=== PATIENT | male | born 1945 | race Caucasian/White ===

== ENCOUNTER 2016-08-20 11:22 | Inpatient (IN) | payer OTHER, MEDICARE ==
[2016-08-20] MEDS ORDERED: NS 1,000 ML IV ONE (12:08)
[2016-08-20] MEDS ORDERED: diphenhydrAMINE 25 MG CAP PO ONE (12:08)
[2016-08-20] MEDS ORDERED: DIAZEPAM 5 MG TAB PO ONE (12:08)
[2016-08-20] MEDS ORDERED: BACITRACIN IRRIGATION/NS 50,000 UNITS/1,000 ML BTL IRR ONE (12:08)
[2016-08-20] MEDS ORDERED: VANCOMYCIN 1.5 GM in D5W 250 ML IV ONE (12:30)
[2016-08-20] MEDS ORDERED: IOPAMIDOL (ISOVUE-300) 200 ML BTL IV ONE (13:02)
[2016-08-20] MEDS ORDERED: MIDAZOLAM 2 MG/2 ML VIAL ONE ×2 (13:02→14:37)
[2016-08-20] MEDS ORDERED: LIDOCAINE 1% 30 ML SDV ONE (13:02)
[2016-08-20] MEDS ORDERED: BUPIVACAINE 0.5% 30 ML SDV ONE (13:02)
[2016-08-20] MEDS ORDERED: fentaNYL 100 MCG/2 ML INJ ONE ×2 (13:02→14:37)
[2016-08-20] MEDS ORDERED: LIDO/EPI 1% **for epidural** 30 ML SDV ONE (13:02)
[2016-08-20] MEDS ORDERED: IOPAMIDOL (ISOVUE-300) 50 ML VIAL IV ONE (13:04)
--- NOTE | 2016-08-20 14:19 | SUROPNOTE ---
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 The patient converted to normal sinus rhythm with IV Amiodarone (administered by EMS). He demonstrated mild indeterminate troponin elevation. Left heart catheterization at [facility] demonstrated coronary disease relatively unchanged from previous (total occlusion of all three yocha dehe coronaries, patient left internal mammary graft to LAD, patent saphenous vein graft to the first obtuse marginal branch, patent circumflex stents, total occlusion of the first diagonal branch, moderate disease in the second diagonal branch, and total occlusion of the right coronary bypass graft with left to right collaterals present), question of some progressive disease in the second diagonal branch. The patient was transferred to [facility] for placement of an implantable defibrillator, secondary to sustained monomorphic ventricular tachycardia; Class I indication for AICD implant. Dual chamber device will be implanted secondary to history of AV block, symptomatic bradycardia, chronotropic intolerance, and difficulty titrating beta-jessy. Procedure Performed: 1. Placement of a dual chamber implantable cardioverter defibrillator. Description of procedure: Risks, benefits, and alternatives were discussed in detail. Informed consent was obtained. We discussed various options for devices. Patient was brought to the catheterization laboratory where a time out was performed. Left subclavian venography was performed via left arm IV, showing anatomically normal and widely patent left subclavian vein. Left anterior chest was sterilely prepped and draped. Patient received Vancomycin 1.5g intravenously. 2% lidocaine and 0.5 % bupivacaine were utilized for local anesthetic. A skin incision was made with a #10 blade and carried down to pectoralis fascia using Bovie, and bleeders were cauterized. Site for the pocket was anesthetized with lidocaine with epinephrine. The pocket was created by blunt dissection and packed with single Ray-Loy antibiotic-soaked gauze. The patient was placed in Trendelenburg position. Then, under fluoroscopic guidance, the subclavian vein was punctured on the first attempt with an 18-gauge thin wall needle and cannulated with 0.035 J-tip guidewire. An 6-Omani peel-away introducing sheath was placed through which a second 0.035 J-tip guidewire was placed. Sheath was removed and flushed, placed back over the original guidewire, establishing dual guidewire access. Then, through the sheath, a active fixation right ventricular pacing lead was placed. This was positioned in the right ventricular apex and secured in place with the active fixation helix. There was adequate pacing and sensing, and the lead was sutured in place with a suture sleeve and two separate 0 Ethibond sutures. Then, over the second guidewire, a 6-Omani peel-away introducing sheath was placed through which the active fixation right atrial lead was passed. Using a J curved stylette, this was placed in the area of the right atrial appendage and secured in place with the active fixation helix. There was adequate pacing and sensing. Of note, when the atrial lead is paced to 80, the patient develops AV block. The lead was suture in place with a suture sleeve and two separate 0 Ethibond sutures. Ray-Loy gauze was moved from the pocket. The pocket was copiously irrigated with antibiotic solution and coated with D-Stat liquid hemostat. Any sites of oozing were cauterized. ICD generator was brought to the field, leads were connected to proper head ports, and all set screws were tightened. Generator was placed in the pocket with the leads posterior, and secured in place with a single 0 Ethibond suture. Defibrillation threshold testing was then performed with a single induction of ventricular fibrillation with shock-on-T protocol, successfully converted to normal sinus rhythm with a single 20 joule shock, a brief moment after the shock was delivered. An additional defibrillation threshold testing was performed with a single induction of ventricular fibrillation with shock-on-T protocol, with successful immediate conversion to normal sinus rhythm with a single 25 joule shock. The pocket was then closed with interrupted layers of 2- 0 and 3-0 Vicryl suture and running 4-0 subcuticular Stratafix suture. Benzoin, Steri-Strips, and Opsite were placed. Hardware Implanted: Implantable Cardioverter Defibrillator is a [employer] Imperia 7 DR-T DF4 ProMRI , model 196734, serial [id number]. Right ventricular lead is a [employer] Protego S 65, model 209560, serial [id number], threshold 0.60V @ 0.40ms, R wave sensing 8.90mV, impedance 744 Ohms. Right atrial lead is a [employer] Solia S 45, model 432346, serial [id number], threshold 0.60V @ 0.40ms, P wave sensing 1.50mV, impedance 444. Defibrillation threshold less than or equal to 25 Joules with shock impedance of 70 Ohms. Portions of this report were generated using a pesticide use medical coordinator. I have personally reviewed the report and agree with the documentation. Report scribed for Dr. Bill Cain. Report scribed by Olga Saha.
--- NOTE | 2016-08-20 15:46 | CPEKG ---
Heart Rate: 62 RR Interval: 968 P-R Interval: 236 QRSD Interval: 168 QT Interval: 492 QTC Interval: 500 P Dolph: -25 QRS Dolph: -60 T Wave Dolph: 81 EKG Severity - ABNORMAL ECG - EKG Impression: ATRIAL-VENTRICULAR DUAL-PACED RHYTHM Electronically Signed By: Farooq Ruiz 20-Aug-2016 15:59:40
[2016-08-20] MEDS ORDERED: OXYCODONE/APAP 5/325 TAB PO PRN (15:50)
[2016-08-20] MEDS ORDERED: HYDROCODONE/APAP 5/325 TAB PO PRN (15:50)
[2016-08-20] MEDS ORDERED: PARAMETERS MISC PRN (16:10)
[2016-08-20] MEDS ORDERED: D50W 25 GM/50 ML SYR IVP PRN (16:10)
--- NOTE | 2016-08-20 16:15 | DX ---
Portable chest x-ray 1550 hours. History: Chest pain and Shortness of breath. Rule out pneumothorax. Findings: Heart size is moderately enlarged. Pulmonary vasculature is prominent centrally. There is p oor inspiration with mild compressive changes. Mild perihilar infiltrates are suspected possibly from pulmonary edema. Dual-lead pacemaker unit is in place. There is no pneumothorax. The patient has had previous open-heart surgery. Moderate degenerative changes are seen about the right glenohumeral misti nt. Impression: 1. Mild fluid overload/CHF suspected. 2. No evidence of pneumothorax.
[2016-08-20 17:26] LABS: % IMMATURE GRANULYOCYTES 0.4 % (0.0-1.1); ABSOLUTE IMMATURE GRANULOCYTES 0.04 10^3/uL (0.00-0.10); ADD DIFF? NO; ADD MORPH? NO; ADD SCAN? NO; ATYPICAL LYMPHOCYTE FLAG 0 (0-99); FRAGMENT RBC FLAG 0 (0-99); HEMATOCRIT 33.2 % (40.0-51.0); LEFT SHIFT FLG 0 (0-99); LIPEMIA HEMOLYSIS FLAG 80 (0-99); MEAN CELL HEMOGLOBIN 27.3 pg (27.9-34.1); MEAN CELL HEMOGLOBIN CONCENTR. 33.1 g/dL (32.4-36.7); MEAN CELL VOLUME 82.4 fL (81.5-99.8); MEAN PLATELET VOLUME 10.2 fL (8.7-11.7); PLATELET CLUMPS FLAG 10 (0-99); PLATELET COUNT 154 10^3/uL (150-400); RED BLOOD CELL COUNT 4.03 10^6/uL (4.40-6.38); RED CELL DISTRIBUTION WIDTH 15.4 % (11.5-15.2)
[2016-08-20 17:51] LABS: ALANINE AMINOTRANSFERASE 28 IU/L (21-72); ALBUMIN 3.7 g/dL (3.5-5.0); ALKALINE PHOSPHATASE 85 IU/L (38-126); ANION GAP 13 mEq/L (8-16); ASPARTATE AMINOTRANSFERASE 28 IU/L (17-59); BILIRUBIN,TOTAL 1.3 mg/dL (0.1-1.4); CALCIUM 7.9 mg/dL (8.5-10.4); CARBON DIOXIDE 20 mEq/l (22-31); CHLORIDE 108 mEq/L (97-110); CREATININE 1.3 mg/dL (0.7-1.3); GLOMERULAR FILTRATION RATE 54; GLUCOSE 190 mg/dL (70-100); POTASSIUM 4.8 mEq/L (3.5-5.2); SODIUM 141 mEq/L (134-144)
[2016-08-20 18:08] LABS: CK-MB INTERPRETATION POSITIVE (NEGATIVE)
[2016-08-20] MEDS: INSULIN LISPRO 100 UNIT/ML SC SCH (18:30)
[2016-08-20 22:48] LABS: GLUCOSE 321 mg/dL (70-100)
[2016-08-21 04:06] LABS: % IMMATURE GRANULYOCYTES 0.5 % (0.0-1.1); ABSOLUTE IMMATURE GRANULOCYTES 0.05 10^3/uL (0.00-0.10); ADD DIFF? NO; ADD MORPH? NO; ADD SCAN? NO; ATYPICAL LYMPHOCYTE FLAG 0 (0-99); FRAGMENT RBC FLAG 0 (0-99); HEMATOCRIT 29.5 % (40.0-51.0); HEMOGLOBIN 9.6 g/dL (13.7-17.5); LEFT SHIFT FLG 0 (0-99); LIPEMIA HEMOLYSIS FLAG 80 (0-99); MEAN CELL HEMOGLOBIN 26.7 pg (27.9-34.1); MEAN CELL HEMOGLOBIN CONCENTR. 32.5 g/dL (32.4-36.7); MEAN CELL VOLUME 81.9 fL (81.5-99.8); MEAN PLATELET VOLUME 10.2 fL (8.7-11.7); PLATELET CLUMPS FLAG 10 (0-99); PLATELET COUNT 145 10^3/uL (150-400); RED CELL DISTRIBUTION WIDTH 15.4 % (11.5-15.2)
[2016-08-21 04:14] LABS: ANION GAP 8 mEq/L (8-16); CALCIUM 7.3 mg/dL (8.5-10.4); CARBON DIOXIDE 21 mEq/l (22-31); CHLORIDE 111 mEq/L (97-110); CREATININE 1.4 mg/dL (0.7-1.3); GLOMERULAR FILTRATION RATE 50; GLUCOSE 229 mg/dL (70-100); POTASSIUM 4.8 mEq/L (3.5-5.2); SODIUM 140 mEq/L (134-144)
--- NOTE | 2016-08-21 08:34 | CPEKG ---
Heart Rate: 70 RR Interval: 857 P-R Interval: 252 QRSD Interval: 110 QT Interval: 424 QTC Interval: 458 P [place]: 0 QRS [place]: 22 T Wave [place]: -13 EKG Severity - ABNORMAL ECG - EKG Impression: ATRIAL-PACED COMPLEXES EKG Impression: NONSPECIFIC INTRAVENTRICULAR CONDUCTION DELAY EKG Impression: LOW VOLTAGE IN FRONTAL LEADS Electronically Signed By: Farooq Ruiz 22-Aug-2016 10:49:08
[2016-08-21 08:40] VITALS: BP 131/66; PULSE 69; RESP 19; TEMP 98.6; O2SAT 95
[2016-08-21] MEDS ORDERED: ALLOPURINOL 300 MG TAB PO SCH (09:00)
[2016-08-21] MEDS ORDERED: ATORVASTATIN CALCIUM 40 MG TAB PO SCH (09:00)
[2016-08-21] MEDS ORDERED: METOPROLOL SUCCINATE XR 25 MG TAB PO SCH (09:00)
[2016-08-21] MEDS ORDERED: LISINOPRIL 10 MG TAB PO SCH (09:00)
[2016-08-21] MEDS ORDERED: ASPIRIN 81 MG CHEWABLE TAB PO SCH (09:00)
[2016-08-21] MEDS ORDERED: CLOPIDOGREL BISULFATE 75 MG TAB PO SCH (09:00)
--- NOTE | 2016-08-21 09:09 | DX ---
PA and Lateral Chest August 21, 2016 at 8:38 a.m. Indication: Pacemaker placement. Comparison: Portable chest dated August 20, 2016 Findings: The left anterior chest wall dual-lead pacemaker/AICD has leads situated in the right atriu m and right ventricle. No pneumothorax, pulmonary edema, or mediastinal hematoma. The lungs have impr river aeration and interstitial edema has resolved since one day prior. The heart remains minimally en larged. Numerous surgical clips in the upper abdomen are unchanged. Impression: 1. Well-positioned new left anterior chest wall dual-lead pacemaker/AICD. 2. No residual edema or pneumothorax. 3. Minimal cardiomegaly. No CHF.
--- NOTE | 2016-08-21 09:57 | SOAPPROG ---
SOAP Progress Note Assessment/Plan: Assessment: Cardiology ([facility]) 1. Syncope 2/2 monomorphic VT converted to NSR w/ amiodarone iv gtt on 08/19/16. Patient originally presented to [facility], underwent [facility] w/ unsuccessful PCI on LAD, and then transferred to [facility] for ICD implantation. Amiodarone has been discontinued. 2. S/p dual chamber defibrillator implantation. CXR is negative for pneumothorax. Device is functioning normally. 3. Underlying high degree av block. 3. CAD s/p remote CABG w/ graft failure and history of PCI. 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 There was progression in the second diagonal with no PCI performed as it was not clear this was culprit lesion in his arrhythmia. 4. Insulin dependent DM. 5. GIANFRANCO on CPAP 6. HTN 7. Hyperlipidemia Plan: 1. Give vancomycin 1 g iv prior to discharge. 2. Continue current medications. 3. Discharge to home. Post-device precautions have been explained. 4. Follow up in our office later this week. Subjective: No complications overnight. Moderate pain at left pectoral incision. Objective: Vital Signs Temp Pulse Resp BP Pulse Ox 37.0 C 69 19 131/66 H 95 08/21/16 08:00 08/21/16 08:00 08/21/16 08:00 08/21/16 08:00 08/21/16 08:00 Laboratory Results 08/21/16 03:42 08/21/16 03:42 08/20/16 08/21/16 08/22/16 05:59 05:59 05:59 Intake Total 1000 Output Total 400 Balance 600 - Time Spent With Patient Time Spent With Patient: 45 minutes spent in coordinating care, physical exam, and documentation. - Pending Discharge Pending Discharge Within 24 Hours: Yes Pending Discharge Date: 08/22/16 Pending Discharge Time: 11:00 Physical Exam - Physical Exam General Appearance: WD/WN, alert, no apparent distress Respiratory: chest non-tender, lungs clear, normal breath sounds Cardiac/Chest: normal peripheral pulses, regular rate, rhythm Peripheral Pulses: 2+: dorsalis-pedis (R), dorsalis-pedis (L) Abdomen: normal bowel sounds, non-tender, soft Extremities: swelling (1-2+ L>R) Neuro/Psych: no motor/sensory deficits, alert, normal mood/affect, oriented x 3 ICD10 Worksheet Patient Problems: Problems Problem Status Diagnosed Coronary artery disease Acute Diabetes Acute Ventricular tachycardia Acute
[2016-08-21] MEDS: INSULIN LISPRO 100 UNIT/ML SC SCH (10:32)
[2016-08-21] MEDS ORDERED: VANCOMYCIN HCL/NORMAL SALINE 250 ML IV ONE (10:47)
--- NOTE | 2016-08-21 15:10 | GDS ---
[f rep st] DISCHARGE SUMMARY DISCHARGE DIAGNOSES: 1. Syncope secondary to monomorphic ventricular tachycardia. 2. Status post dual-chamber implantable defibrillator/cardioverter implantation this hospitalization . 3. Underlying high-degree atrioventricular anabel block. 4. Coronary artery disease status post remote coronary artery bypass grafting and percutaneous coron moises intervention. 5. Insulin-dependent diabetes mellitus. 6. Obstructive sleep apnea treated with continuous positive airway pressure. 7. Hypertension. 8. Hyperlipidemia. HOSPITAL PROCEDURES: Placement of dual-chamber implantable cardioverter/defibrillator. HOSPITAL COURSE: The patient is a 71-year-old male known to our practice for coronary artery disease status post CABG and stenting, multiple cardiovascular risk factors, who was out using his [employer] r extensively on August 19, 2016, after which he became lightheaded, diaphoretic, and developed chest discomfort, which was followed by a syncopal episode. He was found in monomorphic ventricular tachy cardia by EMS and brought to [facility], where he underwent urgent coronary angiography which showed stable disease in his [place] coronary arteries which are chronically occluded and bypas s compared to his last angiogram in 2010. Due to syncope in the setting of ventricular tachycardia, there was Class I indication for defibrillator implantation. However, there was no physician to perf orm this procedure in [place]. Therefore, he was transferred to [facility] yesterda y. He underwent defibrillator implantation with yesterday with Dr. Cain. There have been no comp lications overnight. His device interrogation today showed normal pacer function. radiation monitor ing shows both atrial and [id number] rhythms. LABORATORY DATA: Laboratory studies today show possible acute worsening of a chronic anemia. Hemogl obin and hematocrit on discharge are 9.6 and 29.5, which could also be hemodilutional. Chemistry pillai el is remarkable for a sodium of 140, a potassium of 4.8, a chloride of 111, carbon dioxide 21, BUN 2 4 and a creatinine of 1.4. His baseline creatinine usually runs 1.2 to 1.3. Glucose levels have bee n between 200 and 350, and he is getting back on schedule with his normal insulin dosing. Brain natr iuretic peptide was 2410 which is up from his previous baseline of around 400. He has no signs or sy mptoms of decompensated congestive heart failure. Left ventriculography showed an ejection fraction of approximately 50% which is stable compared to previous. DISPOSITION: The patient has no complaints aside from left pectoral incision pain and will be discha rged to home today. DISCHARGE MEDICATIONS: Allopurinol 300 mg p.o. daily, aspirin 81 mg p.o. daily, atorvastatin 40 mg p .o. daily, clopidogrel 75 mg p.o. daily, Levemir 50 units subcu b.i.d., Humalog 5-10 units subcutaneo usly b.i.d. with meals, lisinopril 10 mg p.o. daily, metformin 1000 mg p.o. b.i.d., metoprolol succin ate 25 mg p.o. daily, nitroglycerin 0.4 mg sublingually as needed for chest pain. DISCHARGE INSTRUCTIONS: The patient will be discharged to home today. Post-defibrillator precaution s have been described in detail. His left pectoral incision is well-approximated and there is no sig nificant ecchymosis or erythema. There are no signs of infection. He denies any fever or chills ove rnight. We will arrange for outpatient follow-up later this week with device interrogation and wound check. He will be sent home today on all his same home medications. Amiodarone has been discontinu ed and there is no indication for continuation, unless of course the patient continues to have more v entricular tachycardia. /[id number]/MODL
== END 2016-08-21 13:44 | disposition home or self-care (01) | DRG 227 ==
LOC: F2W 11:22
PROVIDERS: ADMIT Internal Medicine Interventional Cardiology; ATTEND Internal Medicine Interventional Cardiology
DX: I47.2 Ventricular tachycardia (principal); I44.30 Unspecified atrioventricular block; D53.9 Nutritional anemia, unspecified; I25.10 Atherosclerotic heart disease of native coronary artery without angina pectoris; E11.9 Type 2 diabetes mellitus without complications; G47.33 Obstructive sleep apnea (adult) (pediatric); I10 Essential (primary) hypertension; E78.5 Hyperlipidemia, unspecified; Z95.1 Presence of aortocoronary bypass graft; Z95.5 Presence of coronary angioplasty implant and graft; Z79.4 Long term (current) use of insulin
CPT/HCPCS: 82947-QW; A4649; C1721; C1777; C1898; J1815; J2250; J3010; J3370; Q9967

== ENCOUNTER → 2017-08-26 | Outpatient (CLI) | payer OTHER, MEDICARE | LOC: FCPNEURO 21:00 | PROVIDERS: ATTEND Psychiatry & Neurology Sleep Medicine | DX: G47.33 Obstructive sleep apnea (adult) (pediatric) (principal); G47.61 Periodic limb movement disorder ==

== ENCOUNTER → 2018-01-18 | Outpatient (CLI) | payer OTHER, MEDICARE | LOC: FCPNEURO 21:00 | PROVIDERS: ATTEND Psychiatry & Neurology Sleep Medicine | DX: G47.33 Obstructive sleep apnea (adult) (pediatric) (principal); G47.39 Other sleep apnea; G47.61 Periodic limb movement disorder ==